=== PATIENT | male | born 1930 | race Caucasian/White ===

== ENCOUNTER → 2019-01-08 | Outpatient (CLI) | payer MEDICARE ==
--- NOTE | 2019-01-08 13:16 | CT ---
EXAMINATION TYPE: CT soft tissue neck w con DATE OF EXAM: 01/08/2019 11:18 AM COMPARISON: None HISTORY: Loss of speech x [address] DLP: 653 mGycm Automated exposure control for dose reduction was used. CONTRAST: CT scan of the neck is performed following with IV Contrast, patient injected with 100 mL of Isovue 3 00. Axial images are obtained, coronal and sagittal reformatted images are reviewed. FINDINGS: Airway: There is enlargement of the left piriform sinus, thickening of the aryepiglottic fold and med ialization of the left vocal cord. Otherwise, no gross abnormality seen. Parotid/submandibular glands: No gross abnormality seen. Carotid/Vascular Structures: Grossly patent. Osseous Structures: Disc space narrowing throughout the cervical spine most severe at C3-4 and C6-7 c ausing mild spinal canal stenosis and bilateral neural foraminal stenosis. Other: There is a partially visualized large left hilar, suprahilar and upper lobe mass with a few AP window lymph nodes. IMPRESSION: Partially visualized large left lung mass with mediastinal lymphadenopathy. Further evaluation with C T of the chest with contrast is recommended. 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
--- NOTE | 2019-01-08 13:34 | FL ---
EXAMINATION TYPE: FL barium swallow w video DATE OF EXAM: 01/08/2019 MODIFIED SWALLOW / DEGLUTITION STUDY CLINICAL HISTORY: Dysphagia. TECHNIQUE: Deglutition study is performed utilizing thin liquid barium, honey and nectar thick liqui d barium, barium thick applesauce, and barium coated cracker. COMPARISON: None. FINDINGS: 2 minutes and 6 seconds of fluoroscopy time was utilized. 0 images were provided for interp retation. There is silent aspiration with thin barium on each swallow. Aspiration was also demonstrat ed with nectar thick barium. Honey thick and pudding thick barium demonstrated no evidence of aspirat ion or penetration. No evidence of aspiration or penetration with solid food. IMPRESSION: Aspiration of thin and nectar thick barium. Please refer to speech therapist notes for fu rther details if necessary.
== END | disposition home or self-care (01) ==
LOC: RADCTMAIN 09:34
PROVIDERS: ATTEND Internal Medicine Geriatric Medicine
DX: J38.00 Paralysis of vocal cords and larynx, unspecified (principal); R13.10 Dysphagia, unspecified
CPT/HCPCS: 92611; 82565; 84520; 74230; 70491; 36415; Q9967

== ENCOUNTER → 2019-01-21 | Outpatient (CLI) | payer MEDICARE ==
[2019-01-21 18:38] LABS: African American GFR (CKD) 78.6 (60.0-200.0)
== END | disposition home or self-care (01) ==
LOC: LABWHC1 13:16
PROVIDERS: ATTEND Otolaryngology
DX: R22.2 Localized swelling, mass and lump, trunk (principal)
CPT/HCPCS: 36415; 82565; 84520

== ENCOUNTER → 2019-01-24 | Outpatient (CLI) | payer MEDICARE ==
--- NOTE | 2019-01-25 08:30 | CT ---
EXAMINATION TYPE: CT chest w con DATE OF EXAM: 01/24/2019 COMPARISON: 01/08/2019 CT ninth HISTORY: abn neck CT CT DLP: 467.9 mGycm. Automated Exposure Control for Dose Reduction was Utilized. TECHNIQUE: CT scan of the thorax is performed following with IV Contrast, patient injected with 100 mL of Isovue 300. FINDINGS: LUNGS: Heterogenous, centrally necrotic, multilobulated, peripherally spiculated left upper lobe mass extends to the left lung apex measuring up to 10.5 x 9.3 x 11.6 cm. This at least abuts the mediasti num without clear invasion. This also surrounds the left hilum and narrows the left upper lobe pulmon ron arteries and collapse of the segmental and subsegmental bronchi to the left upper lobe. There is surrounding compressibility and postobstructive atelectasis in the left upper lobe, left lower lobe a nd lingula. There is leftward mediastinal shift secondary to the volume loss. There is underlying mil d emphysematous change. Right basilar pulmonary nodule measures 4 mm and is solid in appearance on se nadine 4 image 50. Cylindrical bronchiectasis of the medial right lower lobe and peribronchial cuffing are seen such as on image 46. MEDIASTINUM: There are abnormal mediastinal lymph nodes with the left hilar lymph nodes not clearly s eparable from the primary mass. Aorticopulmonary window lymph nodes measure up to 1.2 cm in short axi s with some central necrosis. Prevascular lymph node measures up to 1.0 cm in short axis. Right hilar lymph node measures up to 1.1 cm in short axis. Severe three-vessel coronary artery calcifications a re seen. Small left superhilar lymph nodes. The left axillary vein has a somewhat irregular contour. OTHER: Left renal cyst is partially visualized measuring up to 5 cm. Nonspecific left adrenal gland n odule measures 9 mm on image 62. There is diffuse osseous demineralization and slight dextroscoliosis of the spine with moderate degenerative changes of the spine. No clear osseous destruction. IMPRESSION: 1. Large left upper lobe necrotic mass measures up to 10.5 x 9.3 x 11.6 cm compatible with neoplasm a butting the mediastinum but not clearly invading the mediastinum at this time with subsequent atelect asis creating leftward mediastinal shift secondary to volume loss. Abnormal mediastinal adenopathy is likely pathologic. Nonspecific subcentimeter left adrenal gland nodules also seen. 2. Somewhat irregular contour of the left axillary vein. Left upper extremity venous ultrasound is re commended to exclude deep venous thrombosis.
== END | disposition home or self-care (01) ==
LOC: RADCTMAIN 07:47
PROVIDERS: ATTEND Otolaryngology
DX: R59.9 Enlarged lymph nodes, unspecified (principal)
CPT/HCPCS: 71260; Q9967

== ENCOUNTER → 2019-02-05 | Outpatient (CLI) | payer MEDICARE | END | disposition home or self-care (01) | LOC: CPPFTMAIN 11:32 | PROVIDERS: ATTEND Internal Medicine Critical Care Medicine | DX: J98.8 Other specified respiratory disorders (principal) | CPT/HCPCS: 94060; 94726; 94729 ==

== ENCOUNTER → 2019-02-13 | Outpatient (CLI) | payer MEDICARE ==
--- NOTE | 2019-02-18 17:29 | PE ---
Nuclear medicine PET/CT HISTORY: Lung mass, initial Patient received 9.8 mCi F-18 FDG intravenously in delayed scanning was performed from the skull base to the mid thighs. Localization and attenuation correction CT scan was performed. Correlation to chest CT dated 01/24/2019, neck CT 01/08/2019 Neck and chest: The left upper lobe lung mass abuts the superior mediastinum, the posterior lateral a spect of the transverse aorta, extending to the apex of the left hemithorax and extending laterally a nd inferiorly along the pleural margin and measures approximately 10.6 cm in greatest anterior to pos terior dimension. There is extension inferiorly to the level of the left hilum. There is associated h ypermetabolic uptake, SUV 11.4. Additionally there is aorticopulmonary window node which shows associ ated hypermetabolic uptake SUV 7.3. Prevascular nodes are also present anterior to the pulmonary radha ry with associated hypermetabolic uptake seen in the more anterior node, SUV is 4. There is no pleura l or pericardial effusion present. No supraclavicular, axillary, or right hilar adenopathy evident. Coronary artery calcifications are present. ABDOMEN: No evident adrenal mass. No liver mass or retroperitoneal adenopathy. Colonic interposition noted anterior to the liver. Bilateral cystic foci are associated with the kidneys. Likely there is p hysiologic activity associated with the bowel. Prostate is enlarged. Osseous structures show degenerative disc change, facet arthropathy, possible spinal stenosis of the lumbar spine. No suspicious hypermetabolic uptake. IMPRESSION: Findings compatible with bronchogenic carcinoma
== END | disposition home or self-care (01) ==
LOC: RADPETMAIN 14:45
PROVIDERS: ATTEND Internal Medicine Critical Care Medicine
DX: C34.12 Malignant neoplasm of upper lobe, left bronchus or lung (principal)
CPT/HCPCS: 78815; A9552

== ENCOUNTER 2019-02-18 07:55 | Day surgery (SDC) | payer MEDICARE ==
[2019-02-18] MEDS ORDERED: ALPRAZolam 0.25 MG TAB PO ONE (08:30)
[2019-02-18 08:36] VITALS: TEMP 98
[2019-02-18 08:43] LABS: Glucose,Whole Blood 118 mg/dL (75-99)
[2019-02-18 08:52] LABS: Prothrombin Time 10.9 sec (9.0-12.0)
[2019-02-18 08:59] LABS: Mean Platelet Volume 6.5; Platelet Count 269 k/uL (150-450)
--- NOTE | 2019-02-18 10:09 | XR ---
EXAMINATION TYPE: XR chest 1V portable DATE OF EXAM: 02/18/2019 COMPARISON: 09/25/2013 HISTORY: Post left lung biopsy TECHNIQUE: Single frontal view of the chest is obtained. FINDINGS: No sizable pneumothorax. Large left upper lobe lung mass noted. Right lung clear. Hypertro phic and degenerative change of the spine. Underlying COPD suspected. Hypertrophic and degenerative c hange of the spine. IMPRESSION: No pneumothorax post lung biopsy.
[2019-02-18 10:20] VITALS: RESP 16
--- NOTE | 2019-02-18 11:14 | CT ---
EXAMINATION TYPE: CT biopsy lung LT DATE OF EXAM: 02/18/2019 COMPARISON: 02/13/2019 HISTORY: Left lung mass CT DLP: 527 mGycm The procedure is discussed with the patient, the risks, complications, benefits and alternatives, wer e discussed and any questions were answered. Informed consent was obtained. The patient is placed p marisol on the CT table, prepped and draped in the usual sterile fashion. Utilizing a 18-gauge core biopsy needle access into the left upper lobe mass was achieved with a sing le sample obtained. Pathology pending. All elements of maximal barrier technique were utilized. Th e patient remained stable throughout the procedure with no immediate postprocedural complication. IMPRESSION: 1. Successful CT guided core biopsy left upper lobe lung mass
--- NOTE | 2019-02-18 11:55 | XR ---
EXAMINATION TYPE: XR chest 1V portable DATE OF EXAM: 02/18/2019 COMPARISON: 02/18/2019 HISTORY: Post lung biopsy TECHNIQUE: Single frontal view of the chest is obtained. FINDINGS: Large left upper lobe lung mass seen with a small amount of consolidation left upper lobe. Hyperinflation suggests COPD and there is volume loss on the left. Hypertrophic and degenerative mino nge spine. Arthropathy of the shoulders. Atherosclerotic change aorta. IMPRESSION: Large left upper lobe lung mass with adjacent consolidation. No sizable pneumothorax
[2019-02-18 12:59] VITALS: BP 113/61
--- NOTE | 2019-02-18 13:45 | XR ---
EXAMINATION TYPE: XR chest 1V portable DATE OF EXAM: 02/18/2019 COMPARISON: 02/18/2019 HISTORY: Status post lung biopsy TECHNIQUE: Single frontal view of the chest is obtained. FINDINGS: Large left upper lobe lung mass seen with a small amount of consolidation left upper lobe. Hyperinflation suggests COPD and there is volume loss on the left. Hypertrophic and degenerative mino nge spine. Arthropathy of the shoulders. Atherosclerotic change aorta. IMPRESSION: Large left lung mass with no sizable pneumothorax.
[2019-02-18 14:10] VITALS: PULSE 67
== END 2019-02-18 14:01 | disposition home or self-care (01) ==
LOC: RADPROMAIN 07:55
PROVIDERS: ATTEND Internal Medicine Critical Care Medicine
DX: C78.02 Secondary malignant neoplasm of left lung (principal)
CPT/HCPCS: 71045; 77012; 85049; 85610; 88305; 88341; 88342

== ENCOUNTER → 2019-03-05 | Outpatient (CLI) | payer MEDICARE ==
--- NOTE | 2019-03-05 13:26 | MR ---
EXAMINATION TYPE: MR brain wo/w con DATE OF EXAM: 03/05/2019 COMPARISON: MRI brain August 04, 2012. HISTORY: History of newly diagnosed lung cancer with headaches. Staging study. TECHNIQUE: Multiplanar, multisequence images of the brain and brainstem is performed without and with IV contras t, utilizing 7.5 mL intravenous Gadavist . FINDINGS: Diffusion weighted images demonstrate no evidence of a recent infarct or other diffusion ab normality. There is no worrisome extra-axial fluid collection. There is diffuse ventricular and sulc al prominence. There are some small scattered areas of T2 hyperintensity throughout the white matter with some periventricular involvement. Midline structures demonstrate normal morphology. The craniocervical junction appears within normal limits. Post contrast images demonstrate no abnormal enhancement. The dural venous sinuses appear pa tent. There is dominant left vertebral artery. 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 Mild mucosal thickening inferior left maxillary sinus improved from prior. The visualized sinuses are otherwise clear and the globes are intact. IMPRESSION: Mild diffuse cerebral atrophy and chronic small vessel ischemic changes. No significant c hange from prior. No new suspicious enhancement or enhancing intraparenchymal masses noted.
== END | disposition home or self-care (01) ==
LOC: RADMRIMAIN 11:01
PROVIDERS: ATTEND Internal Medicine Hematology & Oncology
DX: I67.82 Cerebral ischemia (principal); G31.9 Degenerative disease of nervous system, unspecified
CPT/HCPCS: 70553; A9585

== ENCOUNTER 2019-06-29 09:20 | Day surgery (SDC) | payer MEDICARE ==
[2019-06-25 10:12] VITALS: BMI 19.9
[~2019-06-29 09:20] MED LIST: DEXAMETHASONE SOD PHOSPHATE 10 MG/ML 1 ML VIAL IV ONE; DEXAMETHASONE SOD PHOSPHATE 4 MG/ML 1 ML VIAL IV ONE; FAMOTIDINE 20 MG/2 ML VIAL IV ONE; HYDROmorphone 0.5 MG/0.5 ML SYRINGE IVP PRN; LACTATED RINGERS 1,000 ML IV SCH; LIDOCAINE 1% 20 ML VIAL (10MG/ML) FOR IV START INTRADERMA PRN; ONDANSETRON 4 MG/2 ML VIAL IVP ONE
[2019-06-29 10:55] VITALS: TEMP 97.5
[2019-06-29 11:02] LABS: Glucose,Whole Blood 121 mg/dL (75-99)
[2019-06-29] MEDS ORDERED: LACTATED RINGERS 1,000 ML IV ONE (11:03)
[2019-06-29] MEDS ORDERED: ONDANSETRON 4 MG/2 ML VIAL IVP ONE (11:07)
[2019-06-29] MEDS ORDERED: DEXAMETHASONE SOD PHOS (MDV) 100 MG/10 ML VIAL IVP ONE (11:07)
[2019-06-29] MEDS ORDERED: LIDOCAINE 1%-EPI 1:100,000 20 ML VIAL SQ ONE ×2 (12:17→12:44)
[2019-06-29] MEDS ORDERED: PHENYLEPHRINE-0.9% NACL SYG 1 MG/10 ML SYRINGE ONE (12:19)
[2019-06-29] MEDS ORDERED: PROPOFOL 10 MG/ML 20 ML VIAL IV ONE (12:19)
[2019-06-29] MEDS ORDERED: LIDOCAINE 1% INJ 10MG/ML (20 ML MDV) ONE (12:19)
[2019-06-29] MEDS ORDERED: DEXAMETHASONE SOD PHOS (MDV) 100 MG/10 ML VIAL ONE (12:19)
[2019-06-29] MEDS ORDERED: fentaNYL (PF) 50 MCG/ML 2 ML AMP ONE (12:19)
[2019-06-29] MEDS ORDERED: MIDAZOLAM 2 MG/2 ML VIAL ONE (12:19)
--- NOTE | 2019-06-29 13:41 | P.OP ---
Date of Procedure: 06/29/19 Preoperative Diagnosis: Left vocal cord paralysis Postoperative Diagnosis: Same Procedure(s) Performed: Left medialization thyroplasty Anesthesia: MAC Surgeon: Yinka Verma Estimated Blood Loss (ml): 2 Pathology: none sent Condition: stable Disposition: PACU Indications for Procedure: This is a 80-year-old white male with a left upper lobe lung malignancy with a resultant left vocal cord paralysis Operative Findings: Left vocal cord in the paramedian position and paralyzed Description of Procedure: Patient brought in the operative suite and placed in a supine position. The patient underwent induction of IV sedation after appropriate monitors were placed by the adobe developer. The patient was prepped and draped in usual aseptic fashion with a shoulder roll and head donut. 1% lidocaine with 1 100,000 epinephrine was infused subcutaneously and field block fashion. A transverse incision was made just to the right of the midline towards the left overlying the inferior aspect of the thyroid cartilage. This was carried sharply through the skin and subcutaneous tissue as well as platysma layer. Superior to inferior skin flaps were developed in the subcu platysmal plane. The midline raphae was split the thyroid cartilage and the strap muscles were reflected off of the left side of the thyroid cartilage. The inferior aspect of the thyroid cartilage was identified and the thyroid cartilage was cleared of overlying musculature. The Gómez thyroplasty set was then utilized to identify the hernandez point and then developed the thyroplasty window. The window required sharp dissection as well as motorized saw as the cartilage was calcified. The cartilaginous window was then removed and the underlying perichondrium was mobilized and then split horizontally. Excellent hemostasis was noted. The Gómez thyroplasty system was then utilized to test the sizes and the best size for the last voicing without strain airway restriction symptomatically was the Gómez #12 male size. The patient voiced well with this and flexible laryngoscopy was performed and the vocal cords noted to be in the median position with good sensation from the right. The implant was then placed. Copious irrigation with sterile normal saline was performed and good hemostasis was noted. A #10 round suction drain was placed and the strap muscles were then closed with 3-0 Vicryl suture the platysma and subcutaneous layers were closed with inverted interrupted 4-0 Vicryl suture and skin closed with running locking 5-0 Prolene suture. Bacitracin ointment sterile dressing were placed. The drain was working well with only 1 mL of output which was serosanguineous. The patient was alert and awake and without any stridor or respiratory difficulty. He was voicing well. He was transferred to the postop recovery area in satisfactory condition.
[2019-06-29 13:47] VITALS: RESP 16
[2019-06-29 14:04] VITALS: PULSE 80
[2019-06-29 14:25] VITALS: BP 122/72
== END 2019-06-29 14:46 | disposition home or self-care (01) ==
LOC: OR 09:20
PROVIDERS: ATTEND Otolaryngology
DX: J38.01 Paralysis of vocal cords and larynx, unilateral (principal); C34.12 Malignant neoplasm of upper lobe, left bronchus or lung; I10 Essential (primary) hypertension; H90.5 Unspecified sensorineural hearing loss; F17.210 Nicotine dependence, cigarettes, uncomplicated; E11.9 Type 2 diabetes mellitus without complications; E78.2 Mixed hyperlipidemia; I48.0 Paroxysmal atrial fibrillation; M10.9 Gout, unspecified; N40.0 Benign prostatic hyperplasia without lower urinary tract symptoms; K21.9 Gastro-esophageal reflux disease without esophagitis; J30.9 Allergic rhinitis, unspecified; E78.00 Pure hypercholesterolemia, unspecified; Z79.2 Long term (current) use of antibiotics; Z92.21 Personal history of antineoplastic chemotherapy; Z92.3 Personal history of irradiation; Z79.899 Other long term (current) drug therapy; Z79.01 Long term (current) use of anticoagulants; Z79.84 Long term (current) use of oral hypoglycemic drugs
CPT/HCPCS: 31591; L8509; J2250; J2405; J0690; J2001; J3010; J1100; J2370; J2704

== ENCOUNTER → 2019-10-27 | Outpatient (CLI) | payer MEDICARE ==
[2019-10-27 09:56] LABS: African American GFR (CKD) >90 (>60 ml/min/1.73 sqM); Blood Urea Nitrogen 31 mg/dL (9-20); Non-African American GFR(CKD) 85 (>60 ml/min/1.73 sqM)
--- NOTE | 2019-10-27 14:50 | CT ---
EXAMINATION TYPE: CT ChestAbdPelvis w con DATE OF EXAM: 10/27/2019 INDICATION: Follow up lung cancer COMPARISON: CT chest 08/05/2019, CT abdomen pelvis 08/06/2019 CT DLP: 992.8 mGycm CONTRAST: Performed with Oral Contrast and with IV Contrast, patient injected with 100 mL of Isovue 300. TECHNIQUE: Axial images at 5 mm thick sections. Reconstructed images in the coronal plane. Delayed images through the kidneys. FINDINGS: CT CHEST: Portion of the thyroid visualized is normal. There are scattered small areas of pneumonitis within the outer aspects of the right lung. Most notab ly within the right midlung measuring 0.6 and 0.3 cm in size. Series 4 image 28. There is thickening along the right middle lobe. Series 4 image 31. There is a large consolidation within the lingula and left upper lobe loculated left upper lung field effusion appears to be present. No enlarged mediastinal or hilar adenopathy is evident. Pericardial effusion is evident. Coronary art michel calcification is present. The ascending aorta diameter at the level of the main pulmonary artery is 3.1 cm. The main pulmonary artery diameter at the bifurcation is 3.[address] ABDOMEN: Liver: Normal Spleen: Normal Pancreas: Normal Adrenal glands: The adrenal glands are normal. Gallbladder: Normal Kidneys: No masses are evident. No hydronephrosis is present. Bilateral renal cysts are present De layed images were obtained through the kidneys, which remain unremarkable. Aorta: Vascular calcification is within the aorta. Inferior vena cava: Normal. CT PELVIS: Loops of bowel within the abdomen and pelvis are normal. Fecal debris is within the colon. There are some loops of bowel lacking oral contrast or with limited distention limiting their evaluation. Appendix: Normal as visualized. Urinary bladder: Normal. Genitourinary structures: Prostate is prominent. Osseous structures: No suspicious lytic or sclerotic lesions. IMPRESSIONS: 1. Increasing Left upper lobe consolidation and loculated effusion suspicious for residual or recurre nt lung cancer. 2. Improving areas of pneumonitis are within the right lung.
== END | disposition home or self-care (01) ==
LOC: RADCTMAIN 09:22
PROVIDERS: ATTEND Internal Medicine Hematology & Oncology
DX: C34.12 Malignant neoplasm of upper lobe, left bronchus or lung (principal); J18.9 Pneumonia, unspecified organism
CPT/HCPCS: 82565; 84520; 71260; 74177; 36415; Q9967

== ENCOUNTER → 2020-02-02 | Outpatient (CLI) | payer MEDICARE ==
--- NOTE | 2020-02-03 10:54 | CT ---
EXAMINATION TYPE: CT ChestAbdPelvis w con DATE OF EXAM: 02/02/2020 INDICATION: Lung cancer, observe for METS COMPARISON: 10/27/2019 CT DLP: 667.9 mGycm CONTRAST: Performed with Oral Contrast and with IV Contrast, patient injected with 100 mL of Isovue 300. TECHNIQUE: Axial images at 5 mm thick sections. Reconstructed images in the coronal plane. Delayed images through the kidneys. FINDINGS: CT CHEST: Portion of the thyroid visualized is normal. There is near complete opacification of the left upper lung field. A few air bronchograms remain pres ent. There is an effusion. Left lower lobe appears aerated. Some bronchiectasis is likely present. There is a 1.5 x 0.8 cm nodule in the posterior medial left lung base. This was present previously ma y have slight diminished size. There are couple of vessels with central hypodensity along the inferior medial right lower lobe. Exam ple image 7, series 7. This may be unopacified pulmonary veins. Pulmonary emboli are not excluded. Th is was present previously No enlarged mediastinal or hilar adenopathy is evident. The ascending aorta diameter at the level of the main pulmonary artery is 3.2 cm. The main pulmonary artery diameter at the bifurcation is 2.9 cm. Coronary artery calcification is present. No pericardi al effusion is evident. CT ABDOMEN: Liver: Normal Spleen: Normal Pancreas: Normal Adrenal glands: The adrenal glands are normal. Gallbladder: Normal Kidneys: No masses are evident. No hydronephrosis is present. There is a 5.2 cm cyst measuring 6 Ho unsfield units on the inferior medial left kidney. There is a 3.5 cm cyst measuring 10 Hounsfield uni ts at the superior lateral right kidney. There is some malrotation of the right kidney. There is a i nferior pole right renal cyst measuring 4.5 cm and 9 Hounsfield units. Delayed images were obtained through the kidneys, which remain unremarkable. Aorta: Vascular calcification is within the aorta. Some mild fusiform prominence of the mid abdomina l aorta is present with an AP diameter of 2.7 cm. Inferior vena cava: Normal. CT PELVIS: Loops of bowel within the abdomen and pelvis are normal. There are loops of bowel which are incom pletely distended or lack oral contrast limiting their evaluation. Appendix: Not visualized Urinary bladder: Normal. Genitourinary structures: Prostate is prominent contains few punctate calcifications. Osseous structures: No suspicious lytic or sclerotic lesions. IMPRESSIONS: 1. Stable appearance left upper lobe consolidation. 2. Diminished size medial left base density. 3. There may be some thrombus within vessels of the right infrahilar region which is somewhat more ap parent than the comparison and may be progressive.
== END | disposition home or self-care (01) ==
LOC: RADCTMAIN 09:24
PROVIDERS: ATTEND Internal Medicine Hematology & Oncology
DX: Z03.89 Encounter for observation for other suspected diseases and conditions ruled out (principal); C34.12 Malignant neoplasm of upper lobe, left bronchus or lung
CPT/HCPCS: 82565; 84520; 71260; 74177; 36415; Q9967

== ENCOUNTER → 2020-05-10 | Outpatient (CLI) | payer MEDICARE ==
--- NOTE | 2020-05-10 14:17 | CT ---
EXAMINATION TYPE: CT ChestAbdPelvis w con DATE OF EXAM: 05/10/2020 COMPARISON: Most recent CT February 02, 2020 and older studies. PET/CT February 13, 2019 HISTORY: follow up lung cancer left thigh diagnosed 2019 with chemotherapy and radiation treatment CT DLP: 662.4 mGycm. Automated Exposure Control for Dose Reduction was Utilized. CONTRAST: CT scan of the thorax, abdomen and pelvis is performed with oral and with IV Contrast, patient inject ed with 100 mL of Isovue 300. FINDINGS: LUNGS: Background moderate underlying emphysematous change with hyperexpanded right lung is redemonst rated. Worsening right basilar reticulonodular opacities on background [id number] right basilar linear scarring and/or atelectasis. Possible related to active treatment. Persistent anterior right lung groundglass opacities with subtle areas of nodularity in the upper lungs is fairly similar appea melissa to most recent prior studies. There is persistent left-sided volume loss with mass like consolidation anterior left upper lung that retains some central air bronchograms and more dense masslike consolidation posterior left upper tennille g with lack of air bronchograms, no significant interval change from most recent CT. Difficult to acc urately measure mass versus postobstructive atelectasis. MEDIASTINUM: No cardiomegaly or pericardial effusion is seen. Fairly severe coronary artery calcific ation is redemonstrated. Fluid along the left aspect of the left atrial appendage no rectum is 34 is again seen. Stable prominent suspicious subcarinal lymph nodes axial image 33. LIVER/GB: No significant abnormality is appreciated. PANCREAS: No significant abnormality is seen. SPLEEN: No significant abnormality is seen. ADRENALS: No significant abnormality is seen. KIDNEYS: Symmetric cortical medullary uptake and excretion without concerning renal mass or hydroneph rosis seen bilaterally. There are simple appearing thin-walled cysts redemonstrated throughout both k idneys. BOWEL: Oral contrast reaches level of hepatic flexure. No suspicious small or large bowel dilatation. GENITAL ORGANS: Markedly enlarged prostate gland consistent with BPH. Adjacent pelvic phleboliths.. LYMPH NODES: No greater than 1cm abdominal or pelvic lymph nodes are appreciated. OSSEOUS STRUCTURES: Slight scoliotic curvature with multilevel spurring in the spine. OTHER: No significant additional abnormality is seen. IMPRESSION: Stable left upper lung volume loss with combination of neoplasm and postobstructive atele ctasis. No significant change from most recent CT. No new suspicious mass or adenopathy.
== END | disposition home or self-care (01) ==
LOC: RADCTMAIN 11:12
PROVIDERS: ATTEND Internal Medicine Hematology & Oncology
DX: J98.11 Atelectasis (principal); J98.4 Other disorders of lung; C34.12 Malignant neoplasm of upper lobe, left bronchus or lung
CPT/HCPCS: 82565; 84520; 71260; 74177; 36415; Q9967

== ENCOUNTER → 2020-11-08 | Outpatient (CLI) | payer MEDICARE ==
--- NOTE | 2020-11-08 11:14 | CT ---
EXAMINATION TYPE: CT chest w con DATE OF EXAM: 11/08/2020 COMPARISON: CT 05/10/2020 HISTORY: Follow up lung cancer CT DLP: 479.8 mGycm Automated exposure control for dose reduction was used. CONTRAST: CT scan of the chest is performed with IV Contrast, patient injected with 100 mL of Isovue 300. FINDINGS: The abnormal attenuation at the left upper lobe level with volume loss in left hemithorax, air bronchograms, low density extending to the apex from the left hilar region is again noted. There is mediastinal shift into the left hemithorax. LUNGS: The lungs are stable, basilar density medially at the left lung base likely represents scarrin g, there is underlying emphysema, some probable traction bronchiectasis at the left lung base with in terstitial changes, scarring. Some scattered groundglass density in the right upper lobe shows a treasure lar appearance, some basilar scarring and bronchiectasis also present on the right, emphysematous mino nge, some vague nodularity shows a similar appearance in the right upper lobe There is no pleural eff usion or pneumothorax seen. The tracheobronchial tree is patent. MEDIASTINUM: There are no greater than 1 cm hilar or mediastinal lymph nodes. Small pericardial effus ion is seen as on prior. There are dense coronary artery calcifications present AORTA: No additional significant abnormality is seen. OTHER: Cortical cysts are associated with the kidneys as on prior. Bones are stable. IMPRESSION: Posttreatment changes appears stable
== END | disposition home or self-care (01) ==
LOC: RADCTMAIN 08:58
PROVIDERS: ATTEND Internal Medicine Hematology & Oncology
DX: C34.12 Malignant neoplasm of upper lobe, left bronchus or lung (principal)
CPT/HCPCS: 82565; 84520; 71260; 36415; Q9967

== ENCOUNTER → 2021-05-17 | Outpatient (CLI) | payer MEDICARE ==
--- NOTE | 2021-05-17 12:56 | CT ---
EXAMINATION TYPE: CT chest w con DATE OF EXAM: 05/17/2021 COMPARISON: 11/08/2020 HISTORY: Lung cancer. CT DLP: 330.1 mGycm Automated exposure control for dose reduction was used. TECHNIQUE: CT scan of the chest is performed with IV Contrast, patient injected with 100 mL of Isovue M300. MIP Images are created on CT scanner and reviewed. 3D reconstructed images are created on an independent workstation and reviewed. FINDINGS: LUNGS: Background moderate underlying emphysematous change with hyperexpanded right lung is redemonst rated. There is evidence of bronchiectasis involving the left lung with subsegmental consolidation sm all amount of fluid. Right basilar bronchiectasis also seen with coarsened interlobular septal thicke radha correlate for chronic interstitial lung disease. Vague attenuation in the anterior portion of th e right upper lobe is likely related atelectasis. There is persistent left-sided volume loss with mas s like consolidation anterior left upper lung that retains some central air bronchograms and more den se masslike consolidation posterior left upper lung with lack of air bronchograms, no significant int erval change from most recent CT. Difficult to accurately measure mass versus postobstructive atelect asis. MEDIASTINUM: There are no greater than 1 cm hilar or mediastinal lymph nodes. No pericardial effusi on is seen. Coronary artery calcification. OTHER: Hypertrophic and degenerative changes of the spine. Small hiatal hernia. IMPRESSION: 1. Stable left upper lung volume loss with combination of neoplasm and postobstructive atelectasis. N o significant change from most recent CT. No new suspicious mass or adenopathy 2. COPD. 3. Coronary artery calcification.
== END | disposition home or self-care (01) ==
LOC: RADCTMAIN 11:26
PROVIDERS: ATTEND Internal Medicine Hematology & Oncology
DX: Z03.89 Encounter for observation for other suspected diseases and conditions ruled out (principal); C34.12 Malignant neoplasm of upper lobe, left bronchus or lung; E11.9 Type 2 diabetes mellitus without complications; J44.9 Chronic obstructive pulmonary disease, unspecified; I25.10 Atherosclerotic heart disease of native coronary artery without angina pectoris
CPT/HCPCS: 82565; 84520; 71260; 36415; Q9967

== ENCOUNTER → 2021-11-29 | Outpatient (CLI) | payer MEDICARE ==
--- NOTE | 2021-11-30 12:47 | CT ---
EXAMINATION TYPE: CT ChestAbdPelvis w con CT DLP: 1019.50 mGycm, Automated exposure control for dose reduction was used. DATE OF EXAM: 11/29/2021 2:15 PM COMPARISON: Multiple CTs of the chest most recent 05/17/2021. CLINICAL INDICATION:Male, 89 years old with history of C34.12 lung ca, Lung Ca Technique: Multiple axial images of the chest, abdomen, and pelvis were obtained following the intrav enous administration of 100 mL Isovue-300. Oral contrast was also administered. Two-dimensional coron al and sagittal reconstructions were obtained. Findings: CHEST: LUNGS/ PLEURA: There is scattered groundglass densities seen within the lungs which are stable within the right upper lobe. There is similar appearance of atelectasis/neoplasm within the left upper lung with increased atelectasis in the left lung inferior lobe on today's exam. Mild bronchiectasis santana es are noted within the bilateral lower lobes. There remains moderate emphysema changes throughout t he lungs. There remains coarsened interstitium. No evidence pneumothorax or pleural effusion. AIRWAY: Grossly patent view of the airways in the left upper lobe demonstrate cut off as into the lef t upper lobe atelectasis/malignancy. HEART: Mildly enlarged for size.. Moderate to severe coronary artery atherosclerosis. Mitral valve le aflet calcifications are present. MEDIASTINUM: Similar appearance of subcarinal lymph nodes measuring up to 1.5 cm in short axis scatt ered calcified lymph nodes are seen along the right paratracheal region. VASCULATURE: No aortic aneurysm. Scattered atherosclerosis of the arterial vasculature. MUSCULOSKELETAL: No acute osseous abnormalities. Multilevel disc degeneration changes throughout the spine. Grade I anterolisthesis of L4 and L5 without spondylolysis. SOFT TISSUES/LYMPH NODES: Unremarkable. LOWER NECK: No significant findings. ABDOMEN: ABDOMEN LIVER: Focal fatty infiltration adjacent to the falciform ligament in segment IVb GALLBLADDER AND BILE DUCTS: Unremarkable. PANCREAS: Unremarkable. SPLEEN: Unremarkable. ADRENAL GLANDS: Unremarkable. KIDNEYS AND URETERS: No evidence of hydronephrosis or renal calculus. The ureters are unremarkable. Bilateral renal cysts measuring up to 5.4 cm on the right and 5.1 cm on the left. PELVIS BLADDER: Unremarkable REPRODUCTIVE: Prostate is enlarged in size measuring 5.5 cm in transverse dimension. ABDOMEN & PELVIS STOMACH AND BOWEL: No evidence of bowel obstruction. PERITONEUM: No evidence of pneumoperitoneum or free fluid. VASCULATURE: No evidence of aortic aneurysm. Scattered atherosclerosis of the arterial vasculature. MUSCULOSKELETAL: No acute osseous abnormalities LYMPH NODES: No gross evidence for lymphadenopathy. SOFT TISSUE/ABDOMINAL WALL: Unremarkable IMPRESSION: 1. Similar left upper lung atelectasis/neoplasm with increased atelectasis within the left lower lobe on today's exam. No new suspicious mass or adenopathy. No evidence for metastatic disease within the abdomen or pelvis. 2. COPD. 3. Moderate to severe coronary artery atherosclerosis. 4. Prostatomegaly correlate with serum PSA.
== END | disposition home or self-care (01) ==
LOC: RADCTMAIN 11:52
PROVIDERS: ATTEND Internal Medicine Hematology & Oncology
DX: C34.12 Malignant neoplasm of upper lobe, left bronchus or lung (principal); Z79.890 Hormone replacement therapy
CPT/HCPCS: 82565; 84520; 71260; 74177; 36415; Q9967

== ENCOUNTER → 2021-12-07 | Outpatient (CLI) | payer MEDICARE ==
--- NOTE | 2021-12-08 12:40 | US ---
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 Previous smoker, hypertension, and hyperlipidemia. Doppler Waveforms: Right: Biphasic to multiphasic Left: Biphasic to multiphasic Pulse Volume Recording: Pressure Gradients: Ankle-Brachial Indices: Right: 1.35 Left: 1.19 Toe Brachial Indices: Right: 0.64 Left: 0.73 IMPRESSION: Fairly normal study.
== END | disposition home or self-care (01) ==
LOC: RADUSWWP 07:29
PROVIDERS: ATTEND Thoracic Surgery (Cardiothoracic Vascular Surgery)
DX: L97.323 Non-pressure chronic ulcer of left ankle with necrosis of muscle (principal); G62.0 Drug-induced polyneuropathy; T45.1X5A Adverse effect of antineoplastic and immunosuppressive drugs, initial encounter
CPT/HCPCS: 93922

== ENCOUNTER → 2021-12-07 | Outpatient (CLI) | payer MEDICARE ==
--- NOTE | 2021-12-07 15:59 | NM ---
EXAMINATION TYPE: NM bone 3 phase DATE OF EXAM: 12/07/2021 COMPARISON: CT scan 11/29/2021 HISTORY: Ulcer left ankle Triple phase bone scintigraphy was performed following the injection of 24.1 mCi Tc 99m MDP. Immedia te images and 5 hours post injection images acquired. FINDINGS: There is increased flow to the distal left foot. Increased uptake is seen on blood pool images along the lateral margin of the ankle and along the distal phalanges of the foot. Delayed imaging demonstrates focal increased uptake involving the region of the lateral malleolus and distal margin second digit. Anterior posterior full body images demonstrate abnormal uptake involving the right knee, right shoul naz most likely are post arthritic. Abnormal faint uptake involving bilateral hip most likely post ar thritic. Cystic area involving the lateral margin of the acetabulum of the left hip on CT scan does n ot demonstrate significantly reduced or increased uptake Abnormal uptake involving the left ankle and foot nonspecific as discussed above. Abnormal uptake inv olving the left knee likely post arthritic. Curvature of the spine with mild intensity uptake in the lower cervical and lumbar spine, more modera te uptake involving the lower thoracic spine is likely degenerative and concordant with recent CT fin dings. IMPRESSION: 1. 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 Would also correlate for possible oste omyelitis of the distal phalanx left second digit. 2. Nonspecific uptake through the vertebral column most likely degenerative. 3. Cystic lesion involving the lateral margin of the left acetabulum and CT scan appears well-circums cribed and small to characterize by CT scan. No significant increased uptake by bone scan. Cystic les ion also stable from multiple prior CT scans and therefore likely benign.
== END | disposition home or self-care (01) ==
LOC: RADNMMAIN 07:37
PROVIDERS: ATTEND Thoracic Surgery (Cardiothoracic Vascular Surgery)
DX: L97.323 Non-pressure chronic ulcer of left ankle with necrosis of muscle (principal); G62.0 Drug-induced polyneuropathy; T45.1X5A Adverse effect of antineoplastic and immunosuppressive drugs, initial encounter
CPT/HCPCS: 78315; A9503

== ENCOUNTER → 2021-12-14 | Outpatient (CLI) | payer MEDICARE ==
[2021-12-14 23:35] LABS: African American GFR (CKD) 78.7 (60.0-200.0); Albumin 3.8 g/dL (3.8-4.9); Albumin/Globulin Ratio 1.36 (1.60-3.17); Anion Gap 9.9 mmol/L (10.00-18.00); BUN/Creat Ratio 14.77 Ratio (12.00-20.00); Blood Urea Nitrogen 14.5 mg/dL (9.0-27.0); C Reactive Protein 2.5 mg/dL (0.00-0.80); Calcium 9.3 mg/dL (8.7-10.3); Carbon Dioxide 28.8 mmol/L (20.0-27.5); Globulin 2.8 g/dL (1.6-3.3); Non-African American GFR(CKD) 67.9 (60.0-200.0); Potassium 5.4 mmol/L (3.5-5.5); Total Bilirubin 0.4 mg/dL (0.30-1.20); Total Protein 6.5 g/dL (6.2-8.2)
[2021-12-14 23:47] LABS: Basophils # (A) 0.05 X 10*3/uL (0.00-0.10); Basophils % (A) 0.7 %; Eosinophils # (A) 0.24 X 10*3/uL (0.04-0.35); Eosinophils % (A) 3.5 %; HCT 43.7 % (39.6-50.0); HGB 12.7 g/dL (13.0-17.0); Immature Grans, Automated 0.3 %; Lymphocytes # (A) 0.92 X 10*3/uL (0.90-5.00); Lymphocytes % (A) 13.4 %; MCH 27.5 pg (27.0-32.0); MCHC 29.1 g/dL (32.0-37.0); MCV 94.6 fL (80.0-97.0); Mean Platelet Volume 9.9 fL (9.5-12.2); Monocytes # (A) 0.51 X 10*3/uL (0.20-1.00); Monocytes % (A) 7.4 %; NRBC Per 100 WBC 0 /100 WBCS (0.0-0.0); Neutrophils # (A) 5.14 X 10*3/uL (1.80-7.70); Neutrophils % (A) 74.7 %; Platelet Count 196 X 10*3/uL (140-440); RBC 4.62 X 10*6/uL (4.40-5.60); RDW 16.7 % (11.5-14.5); WBC 6.88 X 10*3/uL (4.50-10.00)
[2021-12-15 00:30] LABS: Erythrocyte Sedimentation Rate 13 mm/Hr (0-20)
== END | disposition home or self-care (01) ==
LOC: LABWHC1 15:15
PROVIDERS: ATTEND Internal Medicine Geriatric Medicine
DX: L97.323 Non-pressure chronic ulcer of left ankle with necrosis of muscle (principal); G62.0 Drug-induced polyneuropathy; T45.1X5A Adverse effect of antineoplastic and immunosuppressive drugs, initial encounter
CPT/HCPCS: 36415; 80053; 85025; 85652; 86140